=== PATIENT | female | born 1960 | race Caucasian/White ===

== ENCOUNTER 2017-07-02 13:37 | Emergency (ER) | payer OTHER ==
--- NOTE | 2017-07-02 13:55 | EDPHY ---
H & P Time Seen by Provider: 07/02/17 13:54 HPI/ROS: Chief complaint. Abdominal pain HPI. 57-year-old female presents emergency department with left lower quadrant abdominal pain for 2 days. She has however had generalized abdominal pain for 6 months. It is off and on and sometimes on the right sometimes on the left. This is crampy. She has nausea and vomiting and also constipation. No diarrhea. Urinary frequency. She had her urine checked a week ago and there was no infection but she has had urinary frequency for long time. Her abdominal discomfort is worse with eating. She saw her PCP a week ago and was started on a diuretic and has lost some weight after starting the diuretic. She has had an appendectomy. She has also had varying times had ankle pain, breast pain, arm pain. No chest discomfort or trouble breathing or fever however. ROS Constitutional. no fever/chills, no weakness Eyes. no problems with vision ENT. no sore throat, no nasal drainage Cardiovascular. no chest pain Respiratory. no shortness of breath, no cough Abdominal. Abdominal pain with nausea vomiting and constipation . no problems urinating MS. no calf pain/swelling, no neck/back pain, no joint pain Skin. no rash Lymph. no swollen glands Neuro. no headache, no dizziness, no difficulty walking or with speech Past Medical/Surgical History: Fibromyalgia, hypertension, hypothyroid, appendectomy Social History: , nonsmoker, no alcohol Smoking Status: Never smoked Physical Exam: General Appearance: Alert well-developed female mild distress vital signs are stable Eyes: Pupils equal and round no pallor or injection. ENT, Mouth: Mucous membranes are moist. Respiratory: There are no retractions, lungs are clear to auscultation. Cardiovascular: Regular rate and rhythm. Gastrointestinal: Abdomen is soft with mild left lower quadrant discomfort, no masses, bowel sounds normal. Neurological: Awake and alert, sensory and motor exams grossly normal. Skin: Warm and dry, no rashes. Musculoskeletal: Neck is supple nontender. Extremities symmetrical, full range of motion. Psychiatric: Patient is oriented X 3, there is no agitation. Constitutional: Initial Vital Signs Temperature (C) 36.7 C 07/02/17 13:47 Heart Rate 74 07/02/17 13:47 Respiratory Rate 16 07/02/17 13:47 Blood Pressure 114/81 H 07/02/17 13:47 O2 Sat (%) 98 07/02/17 13:47 O2 Delivery Mode Room Air Allergies/Adverse Reactions: hydroxyzine Allergy (Verified 07/02/17 13:45) temazepam Allergy (Verified 07/02/17 13:45) Home Medications: Medication Instructions Recorded Baclofen 07/02/17 Hydrochlorothiazide 07/02/17 Levothyroxine 07/02/17 Lisinopril 07/02/17 Tizanidine HCl 07/02/17 Zofran 07/02/17 traMADol 07/02/17 Medical Decision Making - Diagnostics Imaging Results: Imaging Impressions Abdomen CT 07/02/17 14:25 Impression: 1. Normal CT appearance of the abdomen and pelvis. 2. Large left paracentral disk herniation at L5-S1. Results called to Dr. Chet Lancaster at 4:[address] abdomen pelvis reviewed by me and discussed with Dr. Caba shows normal appearance of the abdomen pelvis without intra abdominal findings. There is an incidental finding of the of left paracentral disc herniation at L5-S1 Procedures: IV normal saline ED Course/Re-evaluation: Re-evaluation 4:20 p.m.. Patient is stable. The patient and her and I discussed imaging and lab results. We discussed treatment plan including criteria for return importance of follow-up and further evaluation. I asked the patient about left-sided radicular symptoms and she really has no focal weakness paresthesias or radiculopathy. She has had urinary urgency for months but has been able to urinate. There is no bowel incontinence. I encouraged them to follow up with Neurosurgery for further evaluation Differential Diagnosis: Patient has chronic pain for more than 20 years. She has many symptoms. Today she was here for evaluation of abdominal pain. She has been having abdominal pain for about 6 months but 2 day history of left lower quadrant pain. I considered urinary tract infection, pyelonephritis, kidney stone, diverticulitis. The etiology of her abdominal pain is not clear. There is an incidental finding of herniated disc at L5-S1 but the patient does not appear to have radicular symptoms. No evidence for cauda equina syndrome by history - Data Points Laboratory Results: Laboratory Results 07/02/17 14:34 07/02/17 14:34 07/02/17 07/02/17 07/02/17 15:25 14:34 14:34 WBC 10.50 10^3/uL H 10^3/uL (3.80-9.50) RBC 4.47 10^6/uL 10^6/uL (4.18-5.33) Hgb 14.2 g/dL g/dL (12.6-16.3) Hct 42.2 % % (38.0-47.0) MCV 94.4 fL fL (81.5-99.8) MCH 31.8 pg pg (27.9-34.1) MCHC 33.6 g/dL g/dL (32.4-36.7) RDW 12.7 % % (11.5-15.2) Plt Count 446 10^3/uL H 10^3/uL (150-400) MPV 9.3 fL fL (8.7-11.7) Neut % (Auto) 45.6 % % (39.3-74.2) Lymph % (Auto) 42.9 % % (15.0-45.0) Ida % (Auto) 5.3 % % (4.5-13.0) Eos % (Auto) 4.9 % % (0.6-7.6) Baso % (Auto) 1.0 % % (0.3-1.7) Nucleat RBC Rel Count 0.0 % % (0.0-0.2) Absolute Neuts (auto) 4.80 10^3/uL 10^3/uL (1.70-6.50) Absolute Lymphs (auto) 4.50 10^3/uL H 10^3/uL (1.00-3.00) Absolute Monos (auto) 0.56 10^3/uL 10^3/uL (0.30-0.80) Absolute Eos (auto) 0.51 10^3/uL H 10^3/uL (0.03-0.40) Absolute Basos (auto) 0.10 10^3/uL 10^3/uL (0.02-0.10) Absolute Nucleated RBC 0.00 10^3/uL 10^3/uL (0-0.01) Immature Gran % 0.3 % % (0.0-1.1) Immature Gran # 0.03 10^3/uL 10^3/uL (0.00-0.10) Sodium 139 mEq/L mEq/L (135-145) Potassium 4.0 mEq/L mEq/L (3.3-5.0) Chloride 99 mEq/L mEq/L (97-110) Carbon Dioxide 27 mEq/l mEq/l (22-31) Anion Gap 13 mEq/L mEq/L (8-16) BUN 20 mg/dL mg/dL (7-23) Creatinine 1.1 mg/dL H mg/dL (0.6-1.0) Estimated GFR 52 Glucose 100 mg/dL mg/dL (70-100) Calcium 9.7 mg/dL mg/dL (8.5-10.4) Lipase 123 IU/L IU/L (23-300) Urine Color PALE YELLOW Urine Appearance CLEAR Urine pH 5.0 (5.0-7.5) Ur Specific [place] 1.006 (1.002-1.030) Urine Protein NEGATIVE (NEGATIVE) Urine Ketones NEGATIVE (NEGATIVE) Urine Blood 1+ H (NEGATIVE) Urine Nitrate NEGATIVE (NEGATIVE) Urine Bilirubin NEGATIVE (NEGATIVE) Urine Urobilinogen NEGATIVE EU EU (0.2-1.0) Ur Leukocyte Esterase NEGATIVE (NEGATIVE) Urine RBC 1-3 /hpf /hpf (0-3) Urine WBC 1-3 /hpf /hpf (0-3) Ur Epithelial Cells TRACE /lpf /lpf (NONE-1+) Urine Glucose NEGATIVE (NEGATIVE) Medications Given: Discontinued Medications Sodium Chloride (Ns) 1,000 mls @ 0 mls/hr IV EDNOW ONE; Wide Open PRN Reason: Protocol Stop: 07/02/17 14:25 Last Admin: 07/02/17 14:30 Dose: 1,000 mls Ondansetron HCl (Zofran) 4 mg IVP EDNOW ONE Stop: 07/02/17 14:25 Last Admin: 07/02/17 14:30 Dose: 4 mg Departure - Departure Disposition: Home, Routine, Self-Care Clinical Impression: Abdominal pain Qualifiers: Abdominal location: left lower quadrant Qualified Code(s): R10.32 - Left lower quadrant pain Condition: Fair Instructions: Abdominal Pain (ED) Additional Instructions: Continue regular medications. Return for worsening symptoms. Recheck in 2 days on Tuesday without fail if not improved You do have a left side disc herniation at L5-S1 which can cause radiation of pain down year left leg. It can also cause leg weakness. Follow up with Kamran Mohamud for further evaluation and discussion. I will also give you the name of neurosurgeon for follow-up and further evaluation. Referrals: KAMRAN MOHAMUD [Other] - 2-3 days, if not improved Ervin Payan MD [Medical Doctor] - As per Instructions
[2017-07-02] MEDS ORDERED: ONDANSETRON 4 MG/2 ML VIAL IVP ONE (14:24)
[2017-07-02] MEDS ORDERED: NS 1,000 ML IV ONE (14:24)
[2017-07-02 14:42] LABS: PLATELET COUNT 446 10^3/uL (150-400)
[2017-07-02] MEDS ORDERED: IOPAMIDOL (ISOVUE-300) 100 ML BTL ONE (15:17)
[2017-07-02 15:50] VITALS: BP 107/63
== END 2017-07-02 16:47 | disposition home or self-care (01) ==
DX: R10.32 Left lower quadrant pain (principal); E86.9 Volume depletion, unspecified; I10 Essential (primary) hypertension; Z90.89 Acquired absence of other organs
CPT/HCPCS: 96374; J2405; Q9967